=== PATIENT | male | born 1955 | race Hispanic/Latino ===

== ENCOUNTER 2021-11-04 20:00 | Emergency (ER) | payer SELFPAY ==
[2021-11-04] MEDS ORDERED: TETANUS,DIPH,PERTUSS(ACELL) VACCINE 0.5 ML SYRINGE IM ONE (20:05)
[2021-11-04] MEDS ORDERED: ACETAMINOPHEN 500 MG TAB PO ONE (20:06)
[2021-11-04 20:08] VITALS: BP 141/79
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
[2021-11-04] MEDS ORDERED: BACITRACIN ZINC OINT 28.4 GM TP ONE (20:45)
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
== END 2021-11-04 21:34 | disposition home or self-care (01) ==
LOC: ED 20:00
DX: S71.132A Puncture wound without foreign body, left thigh, initial encounter (principal); S60.512A Abrasion of left hand, initial encounter; E11.9 Type 2 diabetes mellitus without complications; W34.09XA Accidental discharge from other specified firearms, initial encounter; Y93.89 Activity, other specified; Y92.89 Other specified places as the place of occurrence of the external cause; Y99.8 Other external cause status
CPT/HCPCS: 90471; 90715; 99283